=== PATIENT | male | born 2000 | race Caucasian/White ===

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

== ENCOUNTER 2021-02-21 07:29 | Emergency (ER) | payer OTHER, MEDICAID, SELFPAY ==
[2021-02-21 07:30] VITALS: BP 158/107; PULSE 59; RESP 18; TEMP 36.7; O2SAT 96; BMI 36.9
--- NOTE | 2021-02-21 07:44 | ED_ITS ---
HPI - Headache General Chief Complaint: Headache Stated Complaint: severe head pain, throbbing, started yesterday Time Seen by Provider: 02/21/21 07:36 Mode of arrival: Ambulatory Limitations: no limitations History of Present Illness HPI Narrative: 20-year-old gentleman with a history of headaches and a family history of migraine headaches presents approximately 5 hours after discharge from [facility] emergency room with complaints of acute onset worse headache of his life. Apparently he was at work with no significant trauma or dramatic activities, went to have a bowel movement and with Valsalva maneuver had dramatic onset thunderclap type headache starting in the back of his neck radiating to temples bilaterally. He was seen and evaluated in the ER had a head CT and a CTA both of which were unremarkable with no evidence of aneurysm or aneurysmal bleeding. He was treated for migraine headache and discharged home feeling better. 5 hours later he woke up with recurrent headache described as a 6 to 7/10 located both temples, sharp tight stabbing and radiating down toward his neck with no other associated neurologic findings but significant nausea secondary to the pain in an episode of emesis this morning. He comes to [place] ER for further evaluation. Records from ER visit last night including imaging studies have been requested. Related Data Previous Rx's Medication Instructions Recorded omeprazole 40 mg PO DAILY #14 cap 03/21/20 ondansetron 4 mg PO Q6H PRN #20 tab 03/21/20 sumatriptan succinate 50 mg PO Q2-4H PRN #9 tab 02/21/21 Allergies Allergy/AdvReac Type Severity Reaction Status Date / Time No Known Drug Allergies Allergy Verified 02/21/21 07:42 Review of Systems Review of Systems Narrative: Pertinent positive and negative findings as per HPI Remainder of review of systems is otherwise unremarkable for Constitutional: Fevers, chills, weakness ENT: No sore throat, ear pain CV: Chest pain, palpitations, dyspnea on exertion Respiratory: Cough, wheeze, dyspnea GI: diarrhea : Dysuria, hematuria, flank pain MS: Muscle weakness, numbness, Neuro: Syncope, dizziness, tingling Patient History Medical History Healthy child Migraine Social History Smoking Status: Current every day smoker Smoking Status: Current every day smoker tobacco type: vaping alcohol intake frequency: 0-2 drinks per day Substance Use Type: marijuana Exam Narrative Exam Narrative: General: Healthy appearing, appears uncomfortable, keeps eyes closed minimal movement answers direct questions but his grandmother provides majority of history HEENT: Moist mucous membranes, mildly injected sclera with reactive pupils, Neck: supple Respiratory: Lungs are clear to auscultation, no wheezing no rales no rhonchi. Full and symmetrical air movement Cardiac: Regular rate and rhythm no murmurs no bruits Abdomen: Soft, nontender, good bowel tones, no flank pain Skin: Warm and dry, no rashes Neurologic: Grossly neurologically intact with no obvious asymmetries or abno rmalities Extremities: No trauma, well perfused Psych: Cooperative, appropriate insight and affect Initial Vital Signs Initial Vital Signs: Vital Signs Temperature 98.0 F 02/21/21 07:30 Pulse Rate 59 L 02/21/21 07:30 Respiratory Rate 18 02/21/21 07:30 Blood Pressure 158/107 H 02/21/21 07:30 Pulse Oximetry 96 02/21/21 07:30 Course Orders Ordered: Discontinued Medications Dexamethasone (Dexamethasone 10 Mg/Ml Vial) 10 mg IV NOW ONE Stop: 02/21/21 07:45 Last Admin: 02/21/21 08:13 Dose: 10 mg Documented by: NEVIN Diphenhydramine HCl (Diphenhydramine 50 Mg/Ml Vial) 25 mg IV NOW ONE Stop: 02/21/21 07:45 Last Admin: 02/21/21 08:10 Dose: 25 mg Documented by: NEVIN Sodium Chloride (Normal Saline 0.9%) 1,000 mls @ 1,000 mls/hr IV BOLUS ONE Stop: 02/21/21 08:43 Last Admin: 02/21/21 08:13 Dose: 1,000 mls/hr Documented by: NEVIN Ketorolac Tromethamine (Ketorolac 30 Mg/Ml Vial) 15 mg IV NOW ONE Stop: 02/21/21 07:45 Last Admin: 02/21/21 08:13 Dose: 15 mg Documented by: ANNABELLER Metoclopramide HCl (Metoclopramide 10 Mg/2 Ml Inj) 10 mg IV NOW ONE Stop: 02/21/21 07:45 Last Admin: 02/21/21 08:13 Dose: 10 mg Documented by: BTONER Vital Signs Vital signs: Vital Signs - 8 hr 02/21/21 07:30 Temperature 98.0 F Pulse Rate 59 L Respiratory Rate 18 Blood Pressure 158/107 H Pulse Oximetry 96 [facility] - Headache Medical Records Attestation: I reviewed the patient's medical records. Lab Data Attestation: I reviewed the patient's lab results. Imaging Data CTA Head and neck 1040pm 02/20, [facility]: Radiologist's Impression: Unremarkable appearing brain, left maxillary sinus disease. No intraluminal thrombus aneurysm or focal arterial stenosis is identified. Acute maxillary sinusitis. Driss Tomsa MD [facility] Narrative Medical decision making narrative: Patient is re-examined. He is feeling dramatically better after fluids, Toradol, Reglan, Decadron. He notes that his headache is absolutely resolved. After leaving the emergency room last night his headache was only down to a 3/10. Reviewed CT findings with no evidence of intracranial hemorrhage or aneurysmal bleed. CT does note acute maxillary sinusitis however patient has absolutely no clinical correlation with this. Reviewed migraine, prevention, triggers, expectations and use of sumatriptan for prevention. Questions are answered. No evidence of infection, brain tumors, intracranial hemorrhage or other life- threatening etiology to explain the headache, currently now and highly resolved. Discharge Plan Departure Patient Disposition: Home Clinical Impression: Migraine Qualifiers: Migraine type: unspecified Status migrainosus presence: without status migrainosus Intractability: not intractable Qualified Code(s): G43.909 - Migraine, unspecified, not intractable, without status migrainosus Instructions: DI for Migraine Activity Restrictions/Additional Instructions: Thank you for coming in today With the imaging that was done last night, you do not have any infection, tumors or bleeding inside your brain. With the treatment today it does appear that this is a fairly classic migraine. I am glad that you are feeling better. I am going to give you a prescription for sumatriptan/Imitrex, a migraine specific medication. It works best if you take it as soon as you have any symptoms. You can repeat it once in a 24 hour. If the headache feels that it is returning. Please follow-up with your regular doctor to talk about migraines and medication management. I wish you the best Prescriptions: New sumatriptan succinate 50 mg tablet 50 mg PO Q2-4H PRN (Reason: migraine headache) Qty: 9 RF: 0 No Action ondansetron 4 mg tablet,disintegrating 4 mg PO Q6H PRN (Reason: nausea and vomiting) Qty: 20 RF: 0 omeprazole 40 mg capsule,delayed release(DR/EC) 40 mg PO DAILY Qty: 14 RF: 0 Referrals: Sedrick Gonzalez MD [Primary Care Provider] -
[2021-02-21] MEDS: diphenhydrAMINE 50 MG/ML VIAL 25 MG IV (08:10)
[2021-02-21] MEDS: SODIUM CHLORIDE 0.9% 1,000 ML 1000 ML IV (08:13)
[2021-02-21] MEDS: METOCLOPRAMIDE 10 MG/2 ML INJ IV (08:13)
[2021-02-21] MEDS: DEXAMETHASONE 10 MG/ML VIAL IV (08:13)
[2021-02-21] MEDS: KETOROLAC 30 MG/ML VIAL 15 MG IV (08:13)
[2021-02-21 09:56] VITALS: BP 141/87; PULSE 77; O2SAT 98
== END 2021-02-21 09:57 | disposition home or self-care (01) ==
PROVIDERS: Emergency Provider Emergency Medicine; PCP Family Medicine
DX: G43.909 Migraine, unspecified, not intractable, without status migrainosus (principal)
CPT/HCPCS: 36415; 96361; 96374; 96375; 99284; J1100; J1200; J1885; J2765

== ENCOUNTER 2021-03-18 15:39 | Emergency (ER) | payer OTHER, MEDICAID, SELFPAY ==
[2021-03-18 15:46] VITALS: BP 141/97; PULSE 112; RESP 16; TEMP 37.1; O2SAT 97; BMI 34.5
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
[2021-03-18] MEDS: ONDANSETRON 4 MG/2 ML INJ IV (16:45)
[2021-03-18] MEDS: SODIUM CHLORIDE 0.9% 1,000 ML 1000 ML IV (16:45)
[2021-03-18 17:05] LABS: Add Manual Diff / Slide Review NO; Basophils Absolute Auto 100 /uL (0-100); Basophils Percent Auto 0.6 % (0-2); Eosinophils Absolute Auto 0 /uL (0-450); Eosinophils Percent Auto 0.1 % (2-4); Hematocrit 53.8 % (41-53); Hemoglobin 18.6 g/dL (13.5-17.5); Lymphocytes Absolute Auto 3700 /uL (1100-4500); Lymphocytes Percent Auto 21.6 % (25-40); Mean Corpuscular HGB Conc 34.6 % (30-36); Mean Corpuscular Hemoglobin 28.7 PG (26-34); Mean Corpuscular Volume 82.7 fL (80-100); Monocytes Absolute Auto 1400 /uL (0-900); Monocytes Percent Auto 8.2 % (3-14); Neutrophils Absolute Auto 11800 /uL (1500-7000); Neutrophils Percent Auto 69.5 % (50-75); Platelet Count 333 X10^3/uL (150-400); Red Blood Cell Count 6.51 X10^6/uL (4.5-5.9); White Blood Cell Count 16.9 X10^3/uL (4.5-11.0)
[2021-03-18 17:28] LABS: Alanine Aminotransferase 35 IU/L (<50); Albumin 4.7 g/dL (3.5-5.0); Albumin Globulin Ratio 1.5 (1.0-2.8); Alkaline Phosphatase 71 U/L (38-126); Aspartate Aminotransferase 37 IU/L (17-59); BUN Creatinine Ratio 21.3 (6-22); Bilirubin Total 1.1 mg/dL (0.2-1.3); Blood Urea Nitrogen 19 mg/dL (9-20); Carbon Dioxide 28 mmol/L (22-32); Chloride 94 mmol/L (98-107); Estimated Glomerular Filt Rate > 60.0 mL/min (>60); Globulin 3.1 g/dL (1.7-4.1); Glucose 99 mg/dL (70-100); HEMOLYSIS 21 (0-50); Lipase 160 U/L (23-300); Potassium 3.6 mmol/L (3.4-5.1); Sodium 133 mmol/L (137-145); Total Protein 7.8 g/dL (6.3-8.2)
[2021-03-18 17:43] VITALS: BP 142/84; PULSE 78
== END 2021-03-18 18:00 | disposition home or self-care (01) ==
PROVIDERS: Emergency Provider Emergency Medicine; PCP Family Medicine
DX: R11.2 Nausea with vomiting, unspecified (principal); R10.9 Unspecified abdominal pain; R00.0 Tachycardia, unspecified
CPT/HCPCS: 36415; 80053; 83690; 85025; 96361; 96374; 99284; J2405

== ENCOUNTER 2021-04-26 13:35 | Emergency (ER) | payer OTHER, MEDICAID, SELFPAY ==
[2021-04-26 13:56] VITALS: BP 187/113; PULSE 85; RESP 14; TEMP 36.4; O2SAT 96; BMI 34.9
[2021-04-26] MEDS: ONDANSETRON 4 MG ODT PO (14:11)
[2021-04-26 17:19] VITALS: BP 184/119; PULSE 69; RESP 18; O2SAT 97
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
== END 2021-04-26 19:04 | disposition left against medical advice (07) ==
PROVIDERS: Emergency Provider Emergency Medicine; PCP Family Medicine
DX: R11.2 Nausea with vomiting, unspecified (principal); R10.9 Unspecified abdominal pain
CPT/HCPCS: 81003; 99283